=== PATIENT | female | born 1970 | race Caucasian/White ===

== ENCOUNTER 2016-10-15 12:07 | Emergency (ER) | payer BC ==
[~2016-10-15 12:07] MED LIST: ELIQUIS5 MG PO; HYDROXYZINE HCL50 MG PO; NORCO 10-325 T1 EACH PO; REQUIP1 MG PO; TENORMIN 25 MG25 MG PO; ZANAFLEX4 M1 PO
== END 2016-10-15 14:25 | disposition home or self-care (01) ==
LOC: ER1 12:07
DX: R60.0 Localized edema (principal); F17.210 Nicotine dependence, cigarettes, uncomplicated; Z86.711 Personal history of pulmonary embolism; Z86.718 Personal history of other venous thrombosis and embolism
CPT/HCPCS: 93971; 99283

== ENCOUNTER → 2021-04-07 | Outpatient (CLI) | payer BC ==
[~2021-04-07] MED LIST changes: +ANUSOL HC SUPP1 SUPP PR; +ASPIR-LOW81 MG PO; +ASPIRIN CHEWABL81 MG PO; +ECOTRIN81 MG PO; +ELIQUIS 5 MG TAB5 MG PO; -ELIQUIS5 MG PO; +FLEXERIL 10 MG10 MG PO; +HYDROCHLOROTHIA25 MG PO; -HYDROXYZINE HCL50 MG PO; +IBUPROFEN800 MG PO; +KEFLEX CAP 500500 MG PO; +KEFLEX500 MG PO; +KLONOPIN0.5 MG PO; +LOVENOX SY40 MG/0.4 SQ; +LYRICA200 MG PO; +NORCO 5-325 TA1 EACH PO; +OMNICEF 300 MG300 MG PO; +PERCOCET 5/325 T1 EA PO; +RANEXA500 MG PO; -REQUIP1 MG PO; -TENORMIN 25 MG25 MG PO; +TOPROL XL100 MG PO; +VITAMIN C500 M1 PO; +ZOFRAN 4 MG TAB4 MG PO
[2021-04-07 17:33] LABS: RED BLOOD COUNT 4.09 M/UL (4.00-5.10); WHITE BLOOD COUNT 8.4 K/UL (4.5-11.0)
[2021-04-07 17:51] LABS: BUN/CREATININE RATIO 13 (0-10)
== END ==
LOC: LAB 16:59
PROVIDERS: Family Medicine
DX: R20.2 Paresthesia of skin (principal); R30.9 Painful micturition, unspecified
CPT/HCPCS: 80053; 85025